=== PATIENT | female | born 1960 | race Two or more races ===

== ENCOUNTER 2016-07-08 07:00 | Inpatient (IN) | payer OTHER ==
[~2016-07-08] VITALS: Ht 149.9 cm; Wt 61.2 kg
[2016-08-15] VITALS (19 sets, daily range): BP systolic 89–123; BP diastolic 41–70
[2016-08-15] MEDS ORDERED: TYLENOL EXTRA500 MG ORAL (06:04)
[2016-08-15] MEDS ORDERED: LR 1000ml 1,000 ML IVLG SCH (07:05)
--- NOTE | 2016-08-15 07:05 | Anethesia Preoperative Eval ---
Anesthesia Pre-op PMH/ROS General Date of Evaluation: Aug 15, 2016 Time of Evaluation: 07:26 Anesthesiologist: Deshawn ASA Score: ASA 2 Mallampati Score Class I : Soft palate, uvula, fauces, pillars visible Class II: Soft palate, uvula, fauces visible Class III: Soft palate, base of uvula visible Class IV: Only hard plate visible Mallampati Classification: Class II Surgeon: Ermias Diagnosis: Neck Pain Surgical Procedure: ACDF C5-6 Anesthesia History: none Family History: no anesthesia problems Allergies: Coded Allergies: No Known Allergies (Unverified , 08/15/16) Medications: see eMAR Past Medical History Neurologic/Psychiatric: Reports: depression/anxiety Other: other - Overweight PSxH Narrative: R Arm Sx, C/SX4 Anesthesia Pre-op Phys. Exam Physician Exam Last Vital Signs Date Time Temp Pulse Resp B/P Pulse Ox O2 Delivery O2 Flow Rate FiO2 08/15/16 06:29 97.9 63 20 107/41 99 Room Air Constitutional: NAD Neurologic: CN 2-12 intact Cardiovascular: RRR Respiratory: CTA Gastrointestinal: S/NT/ND Airway Exam Mallampati Score: Class II MO: limited ROM: limited Teeth: intact Anesthesia Pre-op A/P Labs Urine Test Test 08/15/16 06:00 Urine HCG, Qualitative Negative Risk Assessment & Plan Assessment: ASA 2 Plan: GA, BIS, Glidescope Status Change Before Surgery: No Pre-Antibiotics Dru Grams Ancef IV Given Within 1 Hr of Incision: Yes Time Given: 07:41 Cruz Hess MD Aug 15, 2016 07:05
--- NOTE | 2016-08-15 07:11 | Immediate Post-Op Evaluation ---
Immediate Post-Op Evalulation Immediate Post-Op Evalulation Procedure: ACDF C5-6 Date of Evaluation: Aug 15, 2016 Time of Evaluation: 10:55 IV Fluids: 1000 LR Blood Products: 0 Estimated Blood Loss: 30 Urinary Output: 350 Blood Pressure Systolic: 89 Blood Pressure Diastolic: 43 Pulse Rate: 66 Respiratory Rate: 16 O2 Sat by Pulse Oximetry: 95 Temperature (Fahrenheit): 97.4 Pain Score (1-10): 3 Nausea: No Vomiting: No Complications 0 Patient Status: awake, reacts, patent, extubated, none Hydration Status: adequate Dru Grams Ancef IV Given Within 1 Hr of Incision: Yes Time Given: 07:41 Cruz Hess MD Aug 15, 2016 07:11
--- NOTE | 2016-08-15 07:12 | 48 Hour Post Anesthesia Eval ---
Post Anesthesia Evaluation Procedure: ACDF C4-5, C5-6 Date of Evaluation: Aug 15, 2016 Time of Evaluation: 13:56 Blood Pressure Systolic: 117 0: 67 Pulse Rate: 66 Respiratory Rate: 18 Temperature (Fahrenheit): 98.2 O2 Sat by Pulse Oximetry: 97 Airway: patent Nausea: No Vomiting: No Pain Intensity: 3 Hydration Status: adequate Cardiopulmonary Status: Stable Mental Status/LOC: patient returned to baseline Follow-up Care/Observations: 0 Post-Anesthesia Complications: 0 Follow-up care needed: N/A Cruz Hess MD Aug 15, 2016 07:12
[2016-08-15] MEDS ORDERED: Midazolam 2mg/2ml Inj IVP PRN (07:15)
[2016-08-15] MEDS ORDERED: Norco 5mg/325mg tab ORAL PRN ×3 (07:15→13:45)
[2016-08-15] MEDS ORDERED: Oxycodone/Acetaminophen 5-325 ORAL PRN (07:15)
[2016-08-15] MEDS ORDERED: DiphenhydrAMINE 50mg/ml Inj IVP PRN (07:15)
[2016-08-15] MEDS ORDERED: Meperidine 25mg/ml Inj IV PRN (07:15)
[2016-08-15] MEDS ORDERED: Atropine Inj 1mg/10ml Syr IV PRN (07:15)
[2016-08-15] MEDS ORDERED: Ketorolac 60mg Inj IV PRN (07:15)
[2016-08-15] MEDS ORDERED: Ketorolac 30mg Inj IV PRN (07:15)
[2016-08-15] MEDS ORDERED: Metoclopramide 10mg/2ml Inj IVP PRN (07:15)
[2016-08-15] MEDS ORDERED: LORazepam Inj 2mg/ml 1ml IV PRN (07:15)
[2016-08-15] MEDS ORDERED: Norco 7.5mg/325mg tab ORAL PRN (07:15)
[2016-08-15] MEDS ORDERED: fentaNYL 100 mcg/2 mL IV PRN (07:15)
[2016-08-15] MEDS ORDERED: Labetalol 5mg/ml 20ml vial IV PRN (07:15)
[2016-08-15] MEDS ORDERED: Surgicel 4in x 8in TOPIC ONE (07:17)
[2016-08-15] MEDS ORDERED: Thrombin 5000 units TOPIC ONE (07:17)
[2016-08-15] MEDS ORDERED: Vancomycin 1gm inj IVPB ONE (07:18)
[2016-08-15] MEDS ORDERED: Gelfoam Absorbable 1gm powder pkt TOPIC ONE (07:18)
[2016-08-15] MEDS ORDERED: Bupivacaine w/Epi 0.5% 30ml Vial INJ ONE (07:18)
[2016-08-15] MEDS ORDERED: Thrombin 5000 units spray kit TOPIC ONE (07:18)
[2016-08-15] MEDS ORDERED: fentaNYL 100 mcg/2 mL IV ONE (07:30)
[2016-08-15] MEDS ORDERED: Glycopyrrolate 0.2mg/ml 1ml Vial ONE (07:30)
[2016-08-15] MEDS ORDERED: LR 1000ml ONE (07:30)
[2016-08-15] MEDS ORDERED: Dexamethasone 4mg/ml vial ONE (07:30)
[2016-08-15] MEDS ORDERED: Zemuron 50mg/5ml Inj IV ONE ×2 (07:30)
[2016-08-15] MEDS ORDERED: Acetaminophen (Non formulary) 100 ML IV ONE (07:30)
[2016-08-15] MEDS ORDERED: fentaNYL 250mcg/5ml ONE (07:30)
[2016-08-15] MEDS ORDERED: Neostigmine 1mg/ml 10ml Inj ONE (07:30)
[2016-08-15] MEDS ORDERED: Propofol 10mg/ml 100ml btl IV ONE (07:30)
[2016-08-15] MEDS ORDERED: Midazolam 2mg/2ml Inj ONE (07:30)
[2016-08-15] MEDS ORDERED: Sterile Water Irrig 1000ml IRRIG ONE (07:30)
[2016-08-15] MEDS ORDERED: NS Irrig 1000ml ONE (07:30)
[2016-08-15] MEDS ORDERED: Lidocaine 1% Plain 30 ml INJ ONE (07:30)
--- NOTE | 2016-08-15 07:44 | Pre-Procedure Note/Attestation ---
Pre-Procedure Note/Attestation Complete Prior to Procedure Procedure Narrative: C5-6 ACDF and possible C4-5. The patient is cleared medically, the risks and benefits were discussed with the patient this morning as well translated by lola Orozco in the OR and once again went over the risks of surgery and in (creased by osteopenia), psudoarthrosis, recurrent laryngeal nerve damage, adjacent level disease, need for future surgery among other unforeseeable risks. Indications for Procedure Pre-Operative Diagnosis: Cervical disc hernia Central canal stenosis spinal cord compression foraminal stenosis. Attestation I attest that I discussed the nature of the procedure; its benefits; risks and complications; and alternatives (and the risks and benefits of such alternatives ), prior to the procedure, with the patient (or the patient's legal technology sales representative). I attest that, if there was a reasonable possibility of needing a blood transfusion, the patient (or the patient's legal technology sales representative) was given the [place] [employer] [facility] standardized written summary, pursuant to the Lorenzo Kiara Blood Safety Act ([place] Health and Safety Code # 1645, as amended). I attest that I re-evaluated the patient just prior to the surgery and that there has been no change in the patient's H&P, except as documented below: LYNDA SPICER Aug 15, 2016 07:44
[2016-08-15] MEDS ORDERED: Bacitracin 50000 Units Vial IRRIG ONE (08:26)
--- NOTE | 2016-08-15 10:36 | Brief Operative Note ---
Immediate Post Operative Note Operative Note Pre-op Diagnosis: Cervical disc hernia Central canal stenosis spinal cord compression foraminal stenosis. Procedure: C5-6 ACDF Post-op Diagnosis: Same Post-op Diagnosis: same as pre-op Surgeon: Ermias Belt Operator: Vandana Anesthesiologist: kimberly Anesthesia: general Specimen: yes Complications: none Estimated Blood Loss: minimal Drains: none Implant(s) used?: Yes LYNDA SPICER Aug 15, 2016 10:36
--- NOTE | 2016-08-15 12:00 | Diagnostic Imaging Report ---
Indication: PAIN, intraoperative Technique: Digital intraoperative images Comparison: None Findings: Intraoperative images demonstrate a surgical tool projected at the anterior aspect of the C5-6 disc. Subsequent images document placement of disc spacer and fusion hardware at C5-6. Impression: Intraoperative imaging, as described
[2016-08-15] MEDS: Hydromorphone 0.5mg/0.5ml inj IVP PRN ×2 (12:04→12:19)
[2016-08-15] MEDS ORDERED: Morphine Sulfate 4mg/ml Inj SUBQ PRN (13:30)
[2016-08-15] MEDS: ceFAZolin sod 1 GM in D5W 55 ML IV SCH (15:01)
--- NOTE | 2016-08-15 20:53 | General Progress Note ---
Assessment/Plan Status Narrative s/p complex spine surgery Assessment/Plan perioperative antibiotic prophyalxis post o dvt prophyalxos with scd adn tri hose stocking increase ambulation Pt Iot pain management Subjective Date patient seen: Aug 15, 2016 Time patient seen: 20:51 Constitutional: Reports: no symptoms HEENT: Reports: no symptoms Cardiovascular: Reports: no symptoms Respiratory: Reports: no symptoms Allergies: Coded Allergies: No Known Allergies (Unverified , 08/15/16) Objective Last 24 Hour Vital Signs Date Time Temp Pulse Resp B/P Pulse Ox O2 Delivery O2 Flow Rate FiO2 08/15/16 20:00 97.9 72 19 105/55 99 Nasal Cannula 3.0 08/15/16 16:00 97.2 62 22 123/62 100 Nasal Cannula 08/15/16 14:36 97.5 70 22 106/70 98 Nasal Cannula 08/15/16 13:45 97.5 68 16 108/58 98 Nasal Cannula 2.0 08/15/16 13:30 97.5 67 15 107/54 98 Nasal Cannula 2.0 08/15/16 13:15 66 16 103/57 99 Nasal Cannula 2.0 08/15/16 13:00 62 17 100/53 98 Nasal Cannula 2.0 08/15/16 12:45 63 17 101/52 98 Nasal Cannula 2.0 08/15/16 12:30 65 18 100/56 98 Nasal Cannula 2.0 08/15/16 12:27 98.2 08/15/16 12:27 98.2 08/15/16 12:15 70 18 108/55 98 Nasal Cannula 2.0 08/15/16 12:00 65 17 117/53 98 Nasal Cannula 2.0 08/15/16 11:45 69 17 115/59 98 Nasal Cannula 2.0 08/15/16 11:30 70 17 105/60 97 Simple Mask 6.0 08/15/16 11:15 67 17 99/48 97 Simple Mask 6.0 08/15/16 11:04 57 18 98/44 96 Simple Mask 10.0 08/15/16 10:54 61 18 94/55 96 Simple Mask 10.0 08/15/16 10:51 66 18 97 08/15/16 10:50 66 16 95 08/15/16 10:49 62 17 91/58 94 Simple Mask 10.0 08/15/16 10:44 97.4 63 18 89/64 93 Simple Mask 10.0 08/15/16 07:30 98.2 08/15/16 06:29 97.9 63 20 107/41 99 Room Air Laboratory Tests 08/15/16 06:00: Urine HCG, Qualitative Negative Height (Feet): 4 Height (Inches): 11.00 Weight (Pounds): 135 General Appearance: WD/WN Neck: other - wearing soft colllar Cardiovascular: normal peripheral pulses, normal rate, regular rhythm Respiratory/Chest: lungs clear Abdomen: soft Extremities: other - no MASSIEL Borden Aug 15, 2016 20:53
[2016-08-15] MEDS ORDERED: Tubing IV Secondary IV ONE (22:45)
[2016-08-16] VITALS: BP 112/52
[2016-08-16] MEDS: ceFAZolin sod 1 GM in D5W 55 ML IV SCH ×2 (00:54→07:06)
[2016-08-16 04:09] VITALS: BP 106/55
[2016-08-16] MEDS ORDERED: Zemuron 50mg/5ml Inj IV ONE (07:30)
[2016-08-16 08:00] VITALS: BP 94/60
[2016-08-16] MEDS ORDERED: Acetaminophen 650mg/20.3ml NG ONE (11:00)
--- NOTE | 2016-08-16 11:01 | Discharge Summary ---
Discharge Summary Discharge Summary Discharge Summary DATE OF ADMISSION: DATE OF DISCHARGE: 08/16/2016 REASON FOR HOSPITALIZATION: surgery for cervical spine SURGERY PERFORMED: ACDF c5- C6 this is an unfortuante female that had cervical radiculopathy under wentsurgery without difficulty post operatively taken to PACU then to the floor did well over night will dc home today CONDITION IN THE HOSPITAL:The patient tolerated the surgery without complications. DISCHARGE CONDITION: The patient was stable at discharge. DISCHARGE MEDICATIONS: tylneol 650 tid around the clock tylenol # 3 tid prn pain POSTOPERATIVE ORDERS: do not get the surrgical site wet POSTOPERATIVE FOLLOW UP: The patient will be followed in [facility] in 2 weeks MASSIEL VU Aug 16, 2016 11:01
[2016-08-16] MEDS ORDERED: ACETAMINOP160 MG/52 ORAL (11:04)
[2016-08-16 12:00] VITALS: BP 112/58
--- NOTE | 2016-08-21 08:18 | Operative Note - Dictated ---
DATE OF OPERATION: 08/15/2016 NOTE: VERY POOR AUDIO QUALITY PREOPERATIVE DIAGNOSES: 1. C5-C6 disk herniation. 2. Radiculopathy. POSTOPERATIVE DIAGNOSES: 1. C5-C6 disk herniation. 2. Radiculopathy. PROCEDURE: 1. C5-C6 anterior cervical diskectomy. 2. C6 bilateral foraminotomy fusion. 3. C5-C6 interbody fusion. 4. C5-C6 placement of interbody cage from [employer], 14 x 17 x 6 mm. 5. C5-C6 instrumentation using titanium screws 13 mm in length. 6. Use of allograft for interbody fusion. 7. SSEP, upper and lower extremities for three hours. 8. Motor-evoked potential for upper and lower extremities for two hours. 9. Use of intraoperative fluoroscopy for two hours. 10. Interpretation of x-ray of the cervical spine x10. 11. Interpretation of MRI of the cervical spine intraoperatively. 12. Use of intraoperative microscope. 13. Microscopic plastic closure of wound 2 cm in length. SURGEON: Eugene Monson M.D. GROUND WATER PUMP INSTALLER: Rajendra Ross M.D. ANESTHESIOLOGIST: Cruz Hess M.D. COMPLICATIONS: None. CONDITION: Transferred to recovery room under stable condition. Indication For Procedure: The patient is a 55-year-old female with persistent neck and radicular symptoms who was refractory to conservative treatment. She was offered surgery to 02:03 . The risks and benefits of operation which include, but not limited to, infection, bleeding, stroke, , damage to surrounding structures, need for future operative procedures, no improvement of symptoms, worsening of symptoms, other unforeseen risks have been explained to the patient including risk of adjacent level disease and pseudoarthrosis. The patient understood the risks and signed the consent form and we proceeded to surgery accordingly. DESCRIPTION OF PROCEDURE: After informed consent was obtained, the patient was taken to the operating room where she was placed under general anesthesia and intubation. lower extremity left had decreased as well as the right side was decreased. There was improvement in the lower extremity at the end of the case. Otherwise, SSEP remained throughout. The patient's neck was extended and we did a fluoroscopy . The incision was advanced to the midline. At this point, we prepped and draped the neck and after injection with Marcaine 0.5%, we made an incision to the right of midline from midline. The incision was taken to the platysma. The was divided along the incision and dissected and then we got down to the . After this, muscles were elevated and retracted. The retracted and using an 11 blade knife. was performed using a combination of drill and Kerrison. was used to remove the posterior half of the C5 and top of C6 exposing the was elevated and removed. The dura was exposed. I extended the dissection due to the foramen decompressing the C6 nerve root bilaterally. with a direct video confirmation and we continued decompressing the nerve until clearly it was open. Dura and nerve root was obtained. The end stage was clearly . We placed a and subsequently in the inner space, 14 x 17 x 6 mm. This was soaked with nerve, which was obtained from the right iliac crest. iliac access at the beginning and was inserted into the iliac crest and we removed bone marrow closed using Dermabond. At this point, inside the inner space using fluoroscopy and confirmed the position. We then removed the retractors and used an awl to downwards and . We confirmed the mid and lateral positions, which appeared to be perfect. . The was closed using running 2-0 Vicryl sutures followed by interrupted 2-0 Vicryl suture for closure of skin and Dermabond was applied. The patient was transferred to the recovery room moving all of her extremities and I immediately discussed the case with the family, mainly with her . Eugene Monson M.D. DR: LIANNA JOB#: [id number] CC:
== END 2016-08-16 14:30 | disposition home or self-care (01) | DRG 473 ==
LOC: SDSOVERFLO 08-15 05:18 → 3E 08-15 14:14
DX: M50.122 Cervical disc disorder at C5-C6 level with radiculopathy (principal); F41.8 Other specified anxiety disorders
CPT/HCPCS: 36415; 72040; 76001; 81025; 86850; 86900; 86901; 87081; 94003; 94150; J2250; J2405; J2710